=== PATIENT | female | born 1975 | race Caucasian/White ===

== ENCOUNTER 2021-03-22 09:52 | Emergency (ER) | payer SELFPAY ==
[2021-03-22 11:28] LABS: HEMOGLOBIN 14.6 gm/dl (12.3-15.3); RED BLOOD COUNT 4.87 M/UL (4.00-5.10); WHITE BLOOD COUNT 5.4 K/UL (4.5-11.0)
[2021-03-22 11:59] LABS: BUN/CREATININE RATIO 13 (0-10)
[2021-03-22] MEDS ORDERED: VIBRAMYCIN100 MG PO (12:42)
== END 2021-03-22 10:00 | disposition home or self-care (01) ==
LOC: ER1 09:52
PROVIDERS: Physician Assistant
DX: U07.1 COVID-19 (principal); J12.82 Pneumonia due to coronavirus disease 2019; I10 Essential (primary) hypertension; Z90.49 Acquired absence of other specified parts of digestive tract
CPT/HCPCS: 71045; 80053; 85025; 96374; 99284; J2405